=== PATIENT | male | born 1940 | race Caucasian/White ===

== ENCOUNTER 2024-03-09 15:27 | Outpatient (CLI) | payer MEDICARE, OTHER | END 2024-03-09 15:28 | disposition home or self-care (01) | LOC: CSHRAD 15:27 | PROVIDERS: ATTEND Nurse Practitioner | DX: M51.360 Other intervertebral disc degeneration, lumbar region with discogenic back pain only (principal); M41.84 Other forms of scoliosis, thoracic region; M47.814 Spondylosis without myelopathy or radiculopathy, thoracic region; M47.816 Spondylosis without myelopathy or radiculopathy, lumbar region | CPT/HCPCS: 72072; 72100 ==